=== PATIENT | male | born 1955 | race Caucasian/White ===

== ENCOUNTER → 2016-09-15 | Outpatient (CLI) | payer BC, OTHER ==
[~2016-09-15] MED LIST: ASPI325T39 PO; ATEN50TA8 PO; ATOR-26 PO; CLB/200 PO; ENAL10TA88 PO; EZET10TA63 PO; FENO160T PO; METF1TAB53 PO
[2016-09-15 14:14] VITALS: BP 125/81; PULSE 68; TEMP 36.8; O2SAT 98
--- NOTE | 2016-09-15 15:37 | Radiation Oncology Follow-Up ---
Radiation Oncology Follow-Up Date of Visit Sep 15, 2016. (Yudi Contreras PA-C) Reason For Visit Six-month follow-up (Yudi Contreras PA-C) Radiation Completion Date 04/14/16 (Yudi Contreras PA-C) Diagnosis (1) Prostate CA Onset Date: 11/06/2014 Location: both lobes the prostate Histology Subtype: adenocarcinoma Stage: lll Permanent Comment: STAGING: Prostate, adenocarcinoma, ever 4 + 5, rpPSA 0.07 , pT3b, group III TREATMENT: 1. Prostate Biopsy - 11/06/2014 2. Radical Prostatectomy - 01/10/2015 3. Elevated PSA (initial) - 09/04/2015 - 0.03 4. Status post completion of radiation therapy 04/14/2016 received 7020 cGy Last Edited By: Yudi Contreras on Apr 27, 2016 15:07 (Yudi Contreras PA-C) History of Present Illness Mr. Galarza is a 60-year-old gentleman who initially presented with an elevated PSA of 8.51 on 09/19/2014. The patient did have a transrectal ultrasound- guided biopsy by Dr. Winter on 11/06/2014. The pathology revealed prostate adenocarcinoma that was [place] 4+4. The patient subsequently to Dr. Gage Lui at [facility] and ultimately decided on a radical prostatectomy and bilateral pelvic lymph node dissection. The patient underwent radical prostatectomy and a bilateral pelvic lymph node dissection which revealed prostate adenocarcinoma that was [place] 4+5. There was noted to be extraprostatic extension and seminal vesicle invasion. Additionally , there was a focal peripheral margin at the base that was positive. The lymph nodes were negative bilaterally. The bladder neck margin was also negative. The patient was subsequently followed with a PSA which initially undetectable on 03/06/2015 as well as on 05/29/2015. The PSA was elevated to 0.03 on 2015. The PSA was repeated on 11/28/2015 and was 0.07. The patient did have a CT abdomen and pelvis completed on 11/26/2015 which revealed no evidence of bony metastatic disease or pelvic lymphadenopathy. Dr. Lui recommended consideration for salvage radiation therapy. He was given hormone suppression. He completed salvage radiation therapy 2016. He received 7020 cGy. (Yudi Contreras PA-C) Interim History He's been doing well over the past 6 months. His urinary status is excellent. He gave an AUA score of 1. He completed and expanded prostate cancer index composite for clinical practice and gave a score of 0 of 12 and urinary incontinence symptoms. He gave a score of 0 of 12 and urinary irritation symptoms. He gave a score of 0 12 bowel symptoms. He gave a score of 8 of 12 and sexual symptoms to note he considers is not a problem. He gave a score of 4 of 12 and hormonal vitality symptoms. His total was 12 of 60. He continues on hormone suppression. His last injection was June 2016. He states that Dr. Lui has told him that that was the final injection. He has had follow-up PSAs. Most recent was to light 2016. The PSA was less than 0.01. (Yudi Contreras PA-C) Allergies Coded Allergies: Chlorhexidine (Verified Allergy, Intermediate, RASH, 01/10/15) Home Medications Scheduled Aspirin (Aspirin Ec), 325 MG PO QAM Atenolol (Tenormin), 50 MG PO QAM Atorvastatin (Lipitor), 80 MG PO HS Enalapril (Vasotec), 10 MG PO QAM Ezetimibe (Zetia), 10 MG PO QAM Fenofibrate (Tricor), 160 MG PO QPM Metformin Hcl (Glucophage Ext Rel), 1,000 MG PO BID Scheduled PRN Celecoxib (CeleBREX), 1 CAP PO DAILY PRN for Pain Review of Systems Gastrointestinal: Symptoms: WNL Oral: Symptoms: No Problems Respiratory: Symptoms: WNL Urinary: Symptoms: WNL, Nocturia Comments: Nocturia x 1, See AUA & EPIC Skin: Symptoms: No Problems (Yudi Contreras PA-C) Physical Exam Vital Signs Date Time Temp Pulse Resp B/P (MAP) Pulse Ox O2 Delivery O2 Flow Rate FiO2 09/15/16 14:14 36.8 68 18 125/81 98 Fatigue: None General Appearance: no apparent distress Eyes: normal inspection, EOMI ENT: normal ENT inspection, hearing grossly normal Neck: no adenopathy, thyroid normal Respiratory/Chest: lungs clear, no respiratory distress, no accessory muscle use Cardiovascular: regular rate, rhythm, no gallop, no murmur Abdomen: non tender, soft, no organomegaly Extremities: no pedal edema Neurologic/Psychiatric: no motor/sensory deficits, alert, normal mood/affect Skin: warm/dry (Yudi Contreras PA-C) Additional Studies PSA as reviewed above. 09/07/2016. The PSA was less than 0.01. (Yudi Contreras PA-C) Assessment & Plan Plan: The patient was also seen today with Dr. Rico. He'll continue regular follow-up with Dr. Lui. He'll be having PSAs every 6 months. He stated that he'll likely be seeing Dr. Lui in November. We reviewed follow-up in approximately May 2017. He may call if he has any questions or concerns in the interim. (Yudi Contreras PA-C) I agree with note created by Yudi Contreras PA-C. I reviewed the patient's chart and information with her. I have examined and evaluated the patient. I reviewed relevant clinical information and answered the patient's and/or family' s questions. (Veeral. Rico MD) Total Time In Follow-Up I spent 15 minutes speaking to the patient performing examination. I spent 15 minutes reviewing information in completing this note. (Yudi Contreras PA-C) I spent 15 minutes examining and counseling the patient. (Veeral. Rico MD) Copy To Dwain Flores M.D.; Gage Lui MD, Urology
== END | disposition home or self-care (01) ==
LOC: C.ONC 14:04
PROVIDERS: ATTEND Physician Assistant Medical
DX: Z08 Encounter for follow-up examination after completed treatment for malignant neoplasm (principal); Z92.3 Personal history of irradiation; Z85.46 Personal history of malignant neoplasm of prostate

== ENCOUNTER 2018-06-22 10:54 | Inpatient (IN) ==
[2018-06-22] MEDS ORDERED: MoRPHine SULFATE 4 MG/ML 1 ML CARP\\VIAL IV PRN (13:22)
[2018-06-22] MEDS ORDERED: ACETAMINOPHEN 325 MG TAB PO PRN (13:22)
[2018-06-22] MEDS ORDERED: ONDANSETRON INJ 2 MG/ML 2 ML VIAL IV PRN (13:22)
[2018-06-22] MEDS ORDERED: MoRPHine SULFATE 2 MG/ML CARP IV PRN (13:22)
[2018-06-22] MEDS ORDERED: POLYETHYLENE (MIRALAX) 17 GM PACK PO PRN (13:22)
[2018-06-22] MEDS ORDERED: METOPROLOL TARTRATE 1 MG/ML VIAL IV PRN (13:22)
--- OUTSIDE RECORDS SUMMARY | 2018-06-22 13:22 | External Medical Summary | Continuity of Care Document ---
:1955 Author Name Jerald Amaya, Provider Address Unavailable Unavailable , Care Team Providers Name Role Phone Hu Amaya, Gage Suárez Unavailable [email or web address] [email or web address] Amaya|Bairon MEI Unavailable Unavailable Unavailable Unavailable Unavailable Problems Urinary frequency (788.41) (R35.0) Rising PSA level (790.93) (R97.20) Prostate cancer (185) (C61) Impotence (607.84) (N52.9) Hypercholesterolemia (272.0) (E78.00) Diabetes mellitus (250.00) (E11.9) Arthritis (716.90) (M19.90) Testicular swelling (608.86) (N50.89) Nocturia (788.43) (R35.1) Allergies and Adverse Reactions Chlorhexidine CONC (Allergy) Medications Atorvastatin Calcium 80 MG Oral Tablet; TAKE 1 TABLET DAILY. Refills: 0 metFORMIN HCl - 1000 MG Oral Tablet; TAKE 1 TABLET TWICE HEIDI LY WITH MEALS. Refills: 0 Zetia 10 MG Oral Tablet; TAKE 1 TABLET DAILY. Refills: 0 Aspirin 325 MG Oral Tablet; TAKE 1 TABLET DAILY. Refills: 0 Atenolol 50 MG Oral Tablet; TAKE 1 TABLET DAILY. Refills: 0 Enalapril Maleate 10 MG Oral Tablet; TAKE 1 TABLET DAILY. Refills: 0 Fenofibrate 160 MG Oral Tablet; TAKE 1 TABLET DAILY. Refills: 0 Sildenafil Citrate 20 MG Oral Tablet; 1- 5 tablets as needed for sexual activity. Monique Lui I. Start: 07-Dec-2016 Quantity: 100 Refills: 11 Celecoxib 200 MG Oral Capsule; TAKE 1 CAPSULE DAILY WI TH A MEAL. JASON Abdalla Start: 14-Oct-2015 Quantity: 30 Refills: 0 Procedures BUN/Creatinine Ratio w BUN+Creat Date: 14-Jun-2018 Total PSA Date: 14-Jun-2018 History of Hernia Repair Status: Complet ed History of Knee Surgery Status: Complete d History of Arthroscopy Knee Right Status : Completed History of Umbilical Hernia Repair Statu s: Completed History of Colonoscopy (Fiberoptic) Stat us: Completed History of Dental Surgery Status: Comple chelsea History of Oral Surgery Tooth Extraction Status: Completed Immunizations Immunizations not documented Family History Mother Family history of diabetes mellitus (V18.0) (Z83.3) Status: Active Family history of Colon cancer (153.9) (C18.9) Status: Activ e Brother Family history of diabetes mellitus (V18.0) (Z83.3) Status: Active Social History - Smoking Status Former smoker Plan of Treatment Planned Encounters Appointment; Gage Lui M.D. Start: 13-Dec-2018 14:00 R equest Planned Observations Planned Goals not documented Results In-House UA (Urology) (Pending) Laboratory: In House 14-Jun-2018 14:34 VOID, CC, CATH CC Turbid, Clear, Hazy Clear Gluc 0 Prot Trace Nitrate 0 Leuk 0 Blood 0 pH 6.5 Encounters Appointment; Gage Lui M.D. 14-Jun-2018 14:30 Encounter Diagnosis: Problem not documented Appointment; Gage Lui M.D. 14-Dec-2017 14:30 Encounter Diagnosis: Problem not documented Appointment; Gage Lui M.D. 07-Dec-2016 11:45 Encounter Diagnosis: Problem not documented Appointment; Urology, Nursing [facility] 07-Jul-2016 11:00 Encounter Diagnosis: Problem not documented Appointment; Gage Lui M.D. 13-Dec-2018 14:00 Encounter Diagnosis: Problem not documented"
[2018-06-22] MEDS ORDERED: GLUCOSE 40% GEL 15 GM TUBE PO PRN (13:28)
[2018-06-22] MEDS ORDERED: GLUCOSE 10 TABS/TUBE PO PRN (13:28)
[2018-06-22] MEDS ORDERED: CARBOHYDRATES FOR HYPOGLYCEMIA PO PRN (13:28)
[2018-06-22] MEDS ORDERED: DEXTROSE 50% 50 ML SYRINGE IV PRN (13:28)
[2018-06-22] MEDS ORDERED: GLUCAGON FOR INJ 1 MG VIAL SQ PRN (13:28)
[2018-06-22] MEDS ORDERED: PIPERACILL/TAZOBAC CONSULT ACTIVE PRN (13:50)
--- NOTE | 2018-06-22 13:58 | History & Physical Report ---
Date of Service June 22, 2018 Assessment & Plan (1) Pancreatitis: Patient's pancreatitis is significant by laboratory values to we will employ additional imaging of the liver ultrasound and MRCP to evaluate for retained stones. Given the fact that he is got kidney stones this may be the case also the fact that he is got significant irritability lethargy and but not a significant serum bilirubin this may be a passed stone. With concern for sepsis from a GI source given his high fever and tachypnea he will be continued on vancomycin and Zosyn therapy at this time (2) Hypertension: Patient typically takes atenolol for blood pressure control he will be n.p.o. for his pancreatitis will use metoprolol as needed currently there is some concern for sepsis so will not use a standing order but discontinued PRN. Nifedipine also will be help with this is more for renal protective effects for his diabetes (3) Diabetes: Patient typically is on oral control medications for his diabetes he is n.p.o. with sliding scale without carbohydrate coverage. Will use normal saline for hydration at this point time (4) Dyslipidemia: Patient typically takes atorvastatin Zetia and fenofibrate these will be held as he is currently n.p.o. (5) DVT prophylaxis: Heparin DVT prevention History of Present Illness Primary Care Provider: Loreto Jeong 62-year-old diabetic male transferred from [facility] with a history of 2 to 3 days of epigastric and lower chest pain which is worsened today he says he was concerned initially about it being his heart he says he previously had kidney stones but no pain ever like this. At the [facility] he is found to have a temperature of 101 he was tachypneic with respiratory rate of 24 he had an evaluation which included elevation of his LFTs lipase and amylase. CT scan did not show any significant biliary gallbladder ductal abnormalities. The physician at [facility] felt he had sepsis he was volume resuscitated with 2 L of lactated Ringer's given vancomycin and Zosyn and transferred to our facility for the possibility of needing gastroenterological expertise with regards to sepsis associated with pancreatitis I saw the patient in the room he said he is feeling much better he still having some epigastric and bilateral upper quadrant pain in his abdomen he has mild nausea I did review his medications which are atenolol 50 daily aspirin 81 mg daily Lipitor 80 a day fenofibrate 160-day Zetia 10 a day vitamin B12 2500 mg a day metformin 1000 twice daily nifedipine 60-day (this was recently changed from enalapril due to renal dysfunction) Celebrex 200 every day as needed and Januvia 100 a day Allergies Allergy/AdvReac Type Severity Reaction Status Date / Time chlorhexidine Allergy Intermediate RASH Verified 01/10/15 09:42 Home Medications Home Medications Medication Instructions Recorded Confirmed Type ASPIRIN (ASPIRIN EC) 325 mg PO QAM #0 12/25/14 History ATORVASTATIN (LIPITOR) 80 mg PO HS #0 tab 12/25/14 History Atenolol (Tenormin) 50 mg PO QAM #0 tab 12/25/14 History Enalapril (Vasotec) 10 mg PO QAM #0 tab 12/25/14 History Ezetimibe (Zetia) 10 mg PO QAM #0 tab 12/25/14 History Fenofibrate (Tricor) 160 mg PO QPM #0 tab 12/25/14 History METFORMIN HCL (GLUCOPHAGE EXT REL) 1,000 mg PO BID #0 tab 12/25/14 History CELECOXIB (CeleBREX) 1 cap PO DAILY PRN 30 Days #30 cap 12/26/15 History CYANOCOBALAMIN (VITAMIN B-12) 1 tab SUBLINGUAL DAILY #0 06/29/17 History Past Med/Surg History Medical History Diabetes Dyslipidemia Hypertension Pancreatitis Family History Unknown Kidney stone Social History Preferred Language: Tunisian Communication Ability: Effective Beliefs That Will Affect Care: None Current Living Situation: Spouse Other Information That Helps Us Care for You: No Feels Safe at Home: Yes Safety Concerns: Feels Safe At This Time Smoking Status: Never smoker Hx Alcohol Use: No Hx Substance Use: No Review of Systems Review of Systems: ROS: well nourished well developed. No double vision blurry vision No problems with speech or swallowing No palpitations, chest pain or pressure No Wheezing or breathing issues central and upper quadrant abdominal pain with mild nausea No burning urine urine frequency or changes in color No focal joint pain or muscle pain No skin rashes or oral lesions No unusual bruising or bleeding No focused back pain or numbness or loss of strength No changes in memory or confusion Physical Exam Physical Exam: The patient appeared well nourished and normally developed. Vital signs as documented. Head exam is unremarkable. normocephalic, atraumatic Neck is without jugular venous distension, thyromegaly, or lymphademopathy Lungs are clear to auscultation and percussion. Cardiac exam reveals Rhythm is regular. First and second heart sounds normal. Abdominal exam reveals active bowel sounds tenderness in epigastric and bilateral upper quadrants no rebound no guarding Extremities are mildly edematous and both pedal pulses are present Neurologic exam is A&Ox3, no focal deficits, strength is equal bilateral Psychologically seems neither anxious or depressed Skin is warm Dry without bruises or lesions Results & Data Vital Signs (Past 12 Hours) Vital Signs Temp Pulse Resp BP Pulse Ox 06/22/18 13:24 37 C 84 24 112/[address] scan from [facility] was reviewed there is no significant intra- abdominal pathology seen specifically no significant changes with the gallbladder or common bile duct
[2018-06-22] MEDS: SODIUM CHLORIDE 0.9% 1000ML 1,000 ML IV SCH (14:02)
[2018-06-22] MEDS ORDERED: Nursing to Pharmacy Communication ONE (14:08)
[2018-06-22] MEDS ORDERED: VANCOMYCIN CONSULT ACTIVE PRN (14:21)
[2018-06-22] MEDS ORDERED: VANCOMYCIN HCL 2,500 MG in SODIUM CHLORIDE 0.9% 500 ML IV ONE (14:30)
[2018-06-22] MEDS ORDERED: PIPERACILLIN/TAZOBACTAM 4.5 GM in DEXTROSE 5% 100 ML IV ONE (14:30)
[2018-06-22 14:34] LABS: INR 1.1 (0.9-1.1); Prothrombin Time 11.5 Seconds (9.0-12.0)
[2018-06-22 15:48] LABS: Creatinine Clr Calc Pharmacy 106.9 ml/min; Est GFR (African American) 94.7; Est GFR (Non-African American) 81.7
[2018-06-22] MEDS ORDERED: INSULIN ASPART 100 UNITS/ML 3 ML PEN SC SCH (16:30)
--- NOTE | 2018-06-22 16:31 | Ultrasound Report ---
US liver CLINICAL HISTORY: eval cbd and GB pain. Nausea. COMPARISON STUDY: No previous studies for comparison. FINDINGS: Small amount of gallbladder sludge. No shadowing gallstones. Gallbladder wall top normal at 3 mm. No pericholecystic fluid. Common bile duct is 5 mm. Liver demonstrates a component of fatty infiltration. Right kidney measures 13.7 cm maximum dimension. No evidence for hydronephrosis. Several nonobstructi ng right renal calcifications. IMPRESSION: 1. Small amount of gallbladder sludge. 2. Normal caliber bile ducts. 3. Fatty replacement of the liver. 4. Several nonobstructing right renal calcifications. The above report was generated using voice recognition software. It may contain grammatical, syntax or spelling errors. Electronically signed by: Parth Marlow M.D. 06/22/2018 4:30 PM
[2018-06-22] MEDS: PIPERACILLIN/TAZOBACTAM 4.5 GM in DEXTROSE 5% 100 ML IV SCH (18:45)
[2018-06-22] MEDS: INSULIN ASPART 100 UNITS/ML 3 ML PEN SC SCH (19:00)
--- NOTE | 2018-06-22 21:18 | XRay Report ---
XR orbits for MRI HISTORY: 62 years-old Male HX OF METAL IN EYES screening study for MRI. Possible foreign body of the orbits COMPARISON: None available TECHNIQUE: 3 views of the orbits FINDINGS: No opaque foreign body of the orbits identified. No acute facial bone fracture identified. The parana loren sinuses appear generally clear. IMPRESSION: No opaque foreign body. The above report was generated using voice recognition software. It may contain grammatical, syntax o r spelling errors. Electronically signed by: Lorenzo Cleary M.D. 06/22/2018 9:16 PM
--- NOTE | 2018-06-22 22:29 | Magnetic Resonance Report ---
MR MRCP HISTORY: 62 years-old Male acute pancreatitis, possible cholangitis acute pancreatitis with nausea a nd fever COMPARISON: CT abdomen and pelvis 11/26/2015 TECHNIQUE: MRCP without the use of IV contrast was utilized according to institutional protocol. FINDINGS: Study is mildly motion degraded. Imaged lower thorax appears unremarkable. Liver, spleen and adrenal glands are unremarkable. There is moderate gallbladder wall thickening measuring up to approximately 8 mm at the gallbladder fundus. No definite cholelithiasis. Cystic foci about the gallbladder wall al so noted. No pericholecystic fluid identified. Liver is unremarkable. There is an 11 mm circumscribed T2 hyperintense lesion of the posterior right hepatic lobe suggestive of a probable cyst. Similar-ap pearing 8 mm lesion noted about the anterior right hepatic lobe. There is no intrahepatic biliary arline jsoe dilation. Common bile duct is normal, 4 mm. No evidence of choledocholithiasis. Pancreatic duct a ppears normal in caliber. No evidence of pancreatic divisum. No significant inflammation surrounding the pancreas. There is mild generalized pancreatic atrophy. There are a few cystic foci of the pancre atic tail measuring up to 5 mm which may reflect sidebranch IPMN's. No drainable fluid collection. Mild nonspecific bilateral perinephric stranding. 1.7 cm T2 hyperintense lesion of the inferior pole left kidney is suggestive of a probable cyst. Aorta and IVC are unremarkable. No adenopathy. The imag ed bowel appears unremarkable. Soft tissues and bony structures are also within normal limits. IMPRESSION: 1. No evidence of acute pancreatitis, pancreatic ductal dilation or pancreatic fluid collection. 2. Gallbladder wall thickening with suggestion of probable adenomyomatosis. 3. No biliary ductal dilation or choledocholithiasis. The above report was generated using voice recognition software. It may contain grammatical, syntax o r spelling errors. Electronically signed by: Lorenzo Cleary M.D. 06/22/2018 10:28 PM
[2018-06-22] MEDS: HEPARIN SOD 5,000 UNIT/0.5 ML VIAL SQ SCH (22:33)
[2018-06-22] MEDS: FAMOTIDINE 20 MG in SYRINGE 3 ML IV SCH (22:33)
[2018-06-23] MEDS: PIPERACILLIN/TAZOBACTAM 4.5 GM in DEXTROSE 5% 100 ML IV SCH ×3 (01:29→18:09)
[2018-06-23] MEDS: SODIUM CHLORIDE 0.9% 1000ML 1,000 ML IV SCH ×3 (01:30→15:13)
[2018-06-23] MEDS: VANCOMYCIN HCL 1,500 MG in SODIUM CHLORIDE 0.9% 500 ML IV SCH ×2 (04:11→12:10)
[2018-06-23] MEDS: INSULIN ASPART 100 UNITS/ML 3 ML PEN SC SCH ×5 (05:36→21:29)
[2018-06-23 06:07] LABS: Hematocrit (blood only) 33.3 % (42-52); Hemoglobin 11.1 g/dL (14.0-18.0); Mean Corpuscular Hgb Conc 33.3 g/dL (32-36); Mean Corpuscular Volume 86.5 fL (80-100); Mean Platelet Volume 9.5 fL (7.4-10.4); Platelet Count 230 K/uL (130-400); RDW Coefficient of Variation 14.4 % (11.5-14.5); RDW Standard Deviation 45.6 fL (36.4-46.3); Red Blood Count 3.85 M/uL (4.7-6.1); White Blood Count 7.64 K/uL (4.8-10.8)
[2018-06-23 06:37] LABS: Albumin Level 2.6 gm/dl (3.4-5.0); BUN Creatinine Ratio 10.7 (10-20); Bilirubin Direct 0.4 mg/dl (0-0.2); Creatinine Clr Calc Pharmacy 126.5 ml/min; Est GFR (African American) 108.5; Est GFR (Non-African American) 93.6; Potassium 3.4 mmol/L (3.5-5.1)
[2018-06-23 06:39] LABS: Bilirubin,Total 0.9 mg/dl (0.2-1); Total Protein 6.1 gm/dl (6.4-8.2)
[2018-06-23] MEDS: HEPARIN SOD 5,000 UNIT/0.5 ML VIAL SQ SCH ×2 (07:53→21:29)
[2018-06-23] MEDS: FAMOTIDINE 20 MG in SYRINGE 3 ML IV SCH ×2 (07:56→21:30)
[2018-06-23 08:11] LABS: Estimated Average Glucose 160 mg/dl; Hemoglobin A1C 7.2 % (4.5-5.6)
--- NOTE | 2018-06-23 10:16 | Gastrointestinal Consultation ---
Date of Consultation June 23, 2018 Assessment & Plan (1) Elevated LFTs: 62 year old male who presented to [facility] with upper abd pain, nausea w/ fevers at home. It is unclear to me whether or not imaging was done at OSH but labs at that time were notable for significantly elevated lipase/amylase w/ mildly elevated LFTs. There was concern for gallstone panc which prompted transfer. At [facility] he was started on Zosyn and Vancomycin. He has remained afebrile since admission without evidence of leukocytosis or elevated lactic acid. Lipase has since normalized but but transaminases remain elevated w/ normal TB and ALKP. MR and ABD US imaging w/ sludge but without any evidence of acute cholecystitis, pancreatic inflammatory changes, biliary dilation, gallstones or retained biliary stones. DDX discussed: passing stone/sludge - Continue IV ABX for now - Trend LFTs - LR 200 mL/hr - Analgesia PRN - Antiemetics PRN - No clear indication for ERCP - Pending LFTs and clinical status tomorrow will discuss if EUS/ERCP is indicated Thank you for allowing us to participate in the care of this patient. Please call with any acute changes, questions or concerns. Please see addendum below with additional recommendation from my supervising physician. Present on Admission?: Yes (2) Elevated lipase: Present on Admission?: Yes Supervising Physician Co-Signing Physician Notes I have performed a history and physical examination of this patient and reviewed the electronic medical record. Specifically, on physical examination there is mild epigastric tenderness. I have discussed the case with JASON Hurtado. The above note reflects my findings, conclusions, and recommendations. Artie Nails MD History of Present Illness Reason for Consultation: gallstone panc Requesting Physician: Arturo Attending Physician: Shravan Lui MD History of Present Illness 62 year old male w/ history of HTN, dyslipidemia, prostate CA s/p radiaiton transferred from [facility] for gallstone pancreatits - GI asked to evaluate. He notes progressive upper abdominal pain that started about three days ago. Pain is sharp, stabbing constant. Radiates to both upper quadrants and into his back. Assocaited w/ nausea and dry heaves but denies any vomiting. Notes he had a reported temperature at home which prompted ED evaluation. In [facility] was noted to have significantly elevated lipase w/ elevated LFTS and temp 101. No bowel complaints. Denies black/bloody stools. No fever, chills, CP, SOB. Does note some unintentional weight loss although is unable to quantify how much. ETOH none New meds: nifedepine TB: 1.6 -->0.9 AST: 271 --> 416 ALT: 96 --> 259 ALKP 74--> 70 Lipase 15,000 --> 323 ABD US: Small amount of gallbladder sludge.Normal caliber bile ducts.Fatty replacement of the liver. Several nonobstructing right renal calcifications. MRCP: There is moderate gallbladder wall thickening measuring up to approximately 8 mm at the gallbladder fundus. No definite cholelithiasis. Cystic foci about the gallbladder wall also noted. No pericholecystic fluid identified. Liver is unremarkable. There is an 11 mm circumscribed T2 hyperintense lesion of the posterior right hepatic lobe suggestive of a probable cyst. Similar- appearing 8 mm lesion noted about the anterior right hepatic lobe. There is no intrahepatic biliary ductal dilation. Common bile duct is normal, 4 mm. No evidence of choledocholithiasis. Pancreatic duct appears normal in caliber. No evidence of pancreatic divisum. No significant inflammation surrounding the pancreas. There is mild generalized pancreatic atrophy. There are a few cystic foci of the pancreatic tail measuring up to 5 mm which may reflect sidebranch IPMN's. No drainable fluid collection. Allergies Allergy/AdvReac Type Severity Reaction Status Date / Time chlorhexidine Allergy Intermediate RASH Verified 01/10/15 09:42 Home Medications Home Medications Medication Instructions Recorded Confirmed Type ASPIRIN (ASPIRIN EC) 325 mg PO QAM #0 12/25/14 06/22/18 History ATORVASTATIN (LIPITOR) 80 mg PO HS #0 tab 12/25/14 06/22/18 History Atenolol (Tenormin) 50 mg PO QAM #0 tab 12/25/14 06/22/18 History Enalapril (Vasotec) 10 mg PO QAM #0 tab 12/25/14 History Ezetimibe (Zetia) 10 mg PO QAM #0 tab 12/25/14 06/22/18 History Fenofibrate (Tricor) 160 mg PO QPM #0 tab 12/25/14 06/22/18 History METFORMIN HCL (GLUCOPHAGE EXT REL) 1,000 mg PO BID #0 tab 12/25/14 06/22/18 History CELECOXIB (CeleBREX) 1 cap PO DAILY PRN 30 Days #30 cap 12/26/15 History CYANOCOBALAMIN (VITAMIN B-12) 1 tab SUBLINGUAL DAILY #0 06/29/17 06/22/18 History Patient History Medical History Diabetes Dyslipidemia Hypertension Pancreatitis Family History Unknown Kidney stone Social History Preferred Language: Nepalese Communication Ability: Effective Beliefs That Will Affect Care: None Current Living Situation: Spouse Other Information That Helps Us Care for You: No Feels Safe at Home: Yes Safety Concerns: Feels Safe At This Time Smoking Status: Never smoker Hx Alcohol Use: No Hx Substance Use: No Review of Systems Constitutional: + weight loss; no fever, no chills and no weakness Respiratory: no cough, no dyspnea, no pain on inspiration and no wheezing Cardiovascular: no chest pain, no radiating jaw, neck or arm pain, no dyspnea on exertion and no palpitations Gastrointestinal: + abdominal pain and + nausea; no belching, no bloating, no early satiety, no heartburn, no vomiting, no coffee ground emesis, no blood in stools and no melena Physical Exam Constitutional: well developed and well nourished; no acute distress Respiratory: normal respiratory effort, lungs clear to auscultation Cardiovascular: RRR, no murmur, no edema Gastrointestinal (Abdomen): normal bowel sounds, soft, nontender, no hepatosplenomegaly Skin: no rashes, warm and dry Results & Data Vital Signs (Past 12 Hours) Vital Signs Temp Pulse Pulse Resp BP Pulse Ox 06/23/18 07:39 71 06/23/18 07:05 36.7 C 68 18 124/77 94 06/23/18 03:25 36.6 C 72 18 129/77 95 06/22/18 23:15 36.5 C 69 16 125/77 95 06/22/18 22:45 68 Laboratory Results 06/23/18 06/23/18 06/23/18 Range/Units 05:33 05:30 05:30 WBC (4.8-10.8) K/uL RBC (4.7-6.1) M/uL Hgb (14.0-18.0) g/dL Hct (42-52) % MCV (80-100) fL MCH (25-34) pg MCHC (32-36) g/dL RDW Std Deviation (36.4-46.3) fL RDW Coeff of Angely (11.5-14.5) % Plt Count (130-400) K/uL MPV (7.4-10.4) fL PT (9.0-12.0) Seconds INR (0.9-1.1) Sodium 138 (136-145) mmol/L Potassium 3.4 L (3.5-5.1) mmol/L Chloride 110 H (98-107) mmol/L Carbon Dioxide 21 (21-32) mmol/L Anion Gap 7.0 (3-11) BUN 9 (7-18) mg/dl Creatinine 0.83 (0.6-1.4) mg/dl Est Cr Clr Drug Dosing 126.5 ml/min Est GFR ( Amer) 108.5 Est GFR (Non-Af Amer) 93.6 BUN/Creatinine Ratio 10.7 (10-20) Glucose 174 H (70-99) mg/dl POC Glucose 180 H (70-99) Estimat Average Glucose 160 mg/dl Hemoglobin A1c 7.2 H (4.5-5.6) % Calcium 8.0 L (8.5-10.1) mg/dl Total Bilirubin 0.9 (0.2-1) mg/dl Direct Bilirubin 0.4 H (0-0.2) mg/dl AST 416 H (15-37) U/L ALT 259 H (12-78) U/L Alkaline Phosphatase 70 (45-117) U/L Total Protein 6.1 L (6.4-8.2) gm/dl Albumin 2.6 L (3.4-5.0) gm/dl Lipase 323 (73-393) U/L Random Vancomycin mcg/ml 06/23/18 06/22/18 06/22/18 Range/Units 05:30 23:53 18:57 WBC 7.64 (4.8-10.8) K/uL RBC 3.85 L (4.7-6.1) M/uL Hgb 11.1 L (14.0-18.0) g/dL Hct 33.3 L (42-52) % MCV 86.5 (80-100) fL MCH 28.8 (25-34) pg MCHC 33.3 (32-36) g/dL RDW Std Deviation 45.6 (36.4-46.3) fL RDW Coeff of Angely 14.4 (11.5-14.5) % Plt Count 230 (130-400) K/uL MPV 9.5 (7.4-10.4) fL PT (9.0-12.0) Seconds INR (0.9-1.1) Sodium (136-145) mmol/L Potassium (3.5-5.1) mmol/L Chloride (98-107) mmol/L Carbon Dioxide (21-32) mmol/L Anion Gap (3-11) BUN (7-18) mg/dl Creatinine (0.6-1.4) mg/dl Est Cr Clr Drug Dosing ml/min Est GFR ( Amer) Est GFR (Non-Af Amer) BUN/Creatinine Ratio (10-20) Glucose (70-99) mg/dl POC Glucose 171 H 167 H (70-99) Estimat Average Glucose mg/dl Hemoglobin A1c (4.5-5.6) % Calcium (8.5-10.1) mg/dl Total Bilirubin (0.2-1) mg/dl Direct Bilirubin (0-0.2) mg/dl AST (15-37) U/L ALT (12-78) U/L Alkaline Phosphatase (45-117) U/L Total Protein (6.4-8.2) gm/dl Albumin (3.4-5.0) gm/dl Lipase (73-393) U/L Random Vancomycin mcg/ml 06/22/18 06/22/18 06/22/18 Range/Units 17:09 15:26 15:19 WBC (4.8-10.8) K/uL RBC (4.7-6.1) M/uL Hgb (14.0-18.0) g/dL Hct (42-52) % MCV (80-100) fL MCH (25-34) pg MCHC (32-36) g/dL RDW Std Deviation (36.4-46.3) fL RDW Coeff of Angely (11.5-14.5) % Plt Count (130-400) K/uL MPV (7.4-10.4) fL PT (9.0-12.0) Seconds INR (0.9-1.1) Sodium (136-145) mmol/L Potassium (3.5-5.1) mmol/L Chloride (98-107) mmol/L Carbon Dioxide (21-32) mmol/L Anion Gap (3-11) BUN (7-18) mg/dl Creatinine 0.98 (0.6-1.4) mg/dl Est Cr Clr Drug Dosing 106.9 ml/min Est GFR ( Amer) 94.7 Est GFR (Non-Af Amer) 81.7 BUN/Creatinine Ratio (10-20) Glucose (70-99) mg/dl POC Glucose 228 H (70-99) Estimat Average Glucose mg/dl Hemoglobin A1c (4.5-5.6) % Calcium (8.5-10.1) mg/dl Total Bilirubin (0.2-1) mg/dl Direct Bilirubin (0-0.2) mg/dl AST (15-37) U/L ALT (12-78) U/L Alkaline Phosphatase (45-117) U/L Total Protein (6.4-8.2) gm/dl Albumin (3.4-5.0) gm/dl Lipase (73-393) U/L Random Vancomycin 13.3 mcg/ml 06/22/18 06/22/18 Range/Units 14:18 14:04 WBC (4.8-10.8) K/uL RBC (4.7-6.1) M/uL Hgb (14.0-18.0) g/dL Hct (42-52) % MCV (80-100) fL MCH (25-34) pg MCHC (32-36) g/dL RDW Std Deviation (36.4-46.3) fL RDW Coeff of Angely (11.5-14.5) % Plt Count (130-400) K/uL MPV (7.4-10.4) fL PT 11.5 (9.0-12.0) Seconds INR 1.1 (0.9-1.1) Sodium (136-145) mmol/L Potassium (3.5-5.1) mmol/L Chloride (98-107) mmol/L Carbon Dioxide (21-32) mmol/L Anion Gap (3-11) BUN (7-18) mg/dl Creatinine (0.6-1.4) mg/dl Est Cr Clr Drug Dosing ml/min Est GFR ( Amer) Est GFR (Non-Af Amer) BUN/Creatinine Ratio (10-20) Glucose (70-99) mg/dl POC Glucose 268 H (70-99) Estimat Average Glucose mg/dl Hemoglobin A1c (4.5-5.6) % Calcium (8.5-10.1) mg/dl Total Bilirubin (0.2-1) mg/dl Direct Bilirubin (0-0.2) mg/dl AST (15-37) U/L ALT (12-78) U/L Alkaline Phosphatase (45-117) U/L Total Protein (6.4-8.2) gm/dl Albumin (3.4-5.0) gm/dl Lipase (73-393) U/L Random Vancomycin mcg/ml Diagnostic Findings 06/23/18 06/23/18 06/23/18 Range/Units 05:33 05:30 05:30 WBC (4.8-10.8) K/uL RBC (4.7-6.1) M/uL Hgb (14.0-18.0) g/dL Hct (42-52) % MCV (80-100) fL MCH (25-34) pg MCHC (32-36) g/dL RDW Std Deviation (36.4-46.3) fL RDW Coeff of Angely (11.5-14.5) % Plt Count (130-400) K/uL MPV (7.4-10.4) fL PT (9.0-12.0) Seconds INR (0.9-1.1) Sodium 138 (136-145) mmol/L Potassium 3.4 L (3.5-5.1) mmol/L Chloride 110 H (98-107) mmol/L Carbon Dioxide 21 (21-32) mmol/L Anion Gap 7.0 (3-11) BUN 9 (7-18) mg/dl Creatinine 0.83 (0.6-1.4) mg/dl Est Cr Clr Drug Dosing 126.5 ml/min Est GFR ( Amer) 108.5 Est GFR (Non-Af Amer) 93.6 BUN/Creatinine Ratio 10.7 (10-20) Glucose 174 H (70-99) mg/dl POC Glucose 180 H (70-99) Estimat Average Glucose 160 mg/dl Hemoglobin A1c 7.2 H (4.5-5.6) % Calcium 8.0 L (8.5-10.1) mg/dl Total Bilirubin 0.9 (0.2-1) mg/dl Direct Bilirubin 0.4 H (0-0.2) mg/dl AST 416 H (15-37) U/L ALT 259 H (12-78) U/L Alkaline Phosphatase 70 (45-117) U/L Total Protein 6.1 L (6.4-8.2) gm/dl Albumin 2.6 L (3.4-5.0) gm/dl Lipase 323 (73-393) U/L Random Vancomycin mcg/ml 06/23/18 06/22/18 06/22/18 Range/Units 05:30 23:53 18:57 WBC 7.64 (4.8-10.8) K/uL RBC 3.85 L (4.7-6.1) M/uL Hgb 11.1 L (14.0-18.0) g/dL Hct 33.3 L (42-52) % MCV 86.5 (80-100) fL MCH 28.8 (25-34) pg MCHC 33.3 (32-36) g/dL RDW Std Deviation 45.6 (36.4-46.3) fL RDW Coeff of Angely 14.4 (11.5-14.5) % Plt Count 230 (130-400) K/uL MPV 9.5 (7.4-10.4) fL PT (9.0-12.0) Seconds INR (0.9-1.1) Sodium (136-145) mmol/L Potassium (3.5-5.1) mmol/L Chloride (98-107) mmol/L Carbon Dioxide (21-32) mmol/L Anion Gap (3-11) BUN (7-18) mg/dl Creatinine (0.6-1.4) mg/dl Est Cr Clr Drug Dosing ml/min Est GFR ( Amer) Est GFR (Non-Af Amer) BUN/Creatinine Ratio (10-20) Glucose (70-99) mg/dl POC Glucose 171 H 167 H (70-99) Estimat Average Glucose mg/dl Hemoglobin A1c (4.5-5.6) % Calcium (8.5-10.1) mg/dl Total Bilirubin (0.2-1) mg/dl Direct Bilirubin (0-0.2) mg/dl AST (15-37) U/L ALT (12-78) U/L Alkaline Phosphatase (45-117) U/L Total Protein (6.4-8.2) gm/dl Albumin (3.4-5.0) gm/dl Lipase (73-393) U/L Random Vancomycin mcg/ml 06/22/18 06/22/18 06/22/18 Range/Units 17:09 15:26 15:19 WBC (4.8-10.8) K/uL RBC (4.7-6.1) M/uL Hgb (14.0-18.0) g/dL Hct (42-52) % MCV (80-100) fL MCH (25-34) pg MCHC (32-36) g/dL RDW Std Deviation (36.4-46.3) fL RDW Coeff of Angely (11.5-14.5) % Plt Count (130-400) K/uL MPV (7.4-10.4) fL PT (9.0-12.0) Seconds INR (0.9-1.1) Sodium (136-145) mmol/L Potassium (3.5-5.1) mmol/L Chloride (98-107) mmol/L Carbon Dioxide (21-32) mmol/L Anion Gap (3-11) BUN (7-18) mg/dl Creatinine 0.98 (0.6-1.4) mg/dl Est Cr Clr Drug Dosing 106.9 ml/min Est GFR ( Amer) 94.7 Est GFR (Non-Af Amer) 81.7 BUN/Creatinine Ratio (10-20) Glucose (70-99) mg/dl POC Glucose 228 H (70-99) Estimat Average Glucose mg/dl Hemoglobin A1c (4.5-5.6) % Calcium (8.5-10.1) mg/dl Total Bilirubin (0.2-1) mg/dl Direct Bilirubin (0-0.2) mg/dl AST (15-37) U/L ALT (12-78) U/L Alkaline Phosphatase (45-117) U/L Total Protein (6.4-8.2) gm/dl Albumin (3.4-5.0) gm/dl Lipase (73-393) U/L Random Vancomycin 13.3 mcg/ml 06/22/18 06/22/18 Range/Units 14:18 14:04 WBC (4.8-10.8) K/uL RBC (4.7-6.1) M/uL Hgb (14.0-18.0) g/dL Hct (42-52) % MCV (80-100) fL MCH (25-34) pg MCHC (32-36) g/dL RDW Std Deviation (36.4-46.3) fL RDW Coeff of Angely (11.5-14.5) % Plt Count (130-400) K/uL MPV (7.4-10.4) fL PT 11.5 (9.0-12.0) Seconds INR 1.1 (0.9-1.1) Sodium (136-145) mmol/L Potassium (3.5-5.1) mmol/L Chloride (98-107) mmol/L Carbon Dioxide (21-32) mmol/L Anion Gap (3-11) BUN (7-18) mg/dl Creatinine (0.6-1.4) mg/dl Est Cr Clr Drug Dosing ml/min Est GFR ( Amer) Est GFR (Non-Af Amer) BUN/Creatinine Ratio (10-20) Glucose (70-99) mg/dl POC Glucose 268 H (70-99) Estimat Average Glucose mg/dl Hemoglobin A1c (4.5-5.6) % Calcium (8.5-10.1) mg/dl Total Bilirubin (0.2-1) mg/dl Direct Bilirubin (0-0.2) mg/dl AST (15-37) U/L ALT (12-78) U/L Alkaline Phosphatase (45-117) U/L Total Protein (6.4-8.2) gm/dl Albumin (3.4-5.0) gm/dl Lipase (73-393) U/L Random Vancomycin mcg/ml
--- NOTE | 2018-06-23 10:33 | Pharmacy Report ---
Pharmacy Abx Initial Consult - Date of Service June 23, 2018 - Pharmacy Dosing Scope Date of Consult: 06-22 Consultation requested by: Dr. Morris Pharmacy is consulted to initiate vancomycin/zosyn dosing therapy, order appropriate labs and adjust drug dose/frequency. - Subjective The patient is a 62 year old M admitted on 06/22/18 13:19. - Objective Height: 6 ft Weight: 129 kg Vital Signs (Past 12hrs): Vital Signs Temp Pulse Pulse Resp BP Pulse Ox 06/23/18 07:39 71 06/23/18 07:05 36.7 C 68 18 124/77 94 06/23/18 03:25 36.6 C 72 18 129/77 95 06/22/18 23:15 36.5 C 69 16 125/77 95 06/22/18 22:45 68 Lab Results (24hrs): Laboratory Tests (24 Hours) 06/23/18 06/23/18 06/22/18 05:30 05:30 17:09 WBC 7.64 Creatinine 0.83 Est Cr Clr Drug Dosing 126.5 Random Vancomycin 13.3 06/22/18 15:26 WBC Creatinine 0.98 Est Cr Clr Drug Dosing 106.9 Random Vancomycin - Risk Factors for Resistance * Antimicrobial use within the last 90 days [vancomycin/zosyn CLINICAL SOCIAL WORK AIDE] - Assessment & Plan Assessment/Plan: Pharmacy consulted to start vancomycin and zosyn for possible sepsis associated with pancreatitis. Patient had been transferred from OSH where he had worsening epigastric/lower chest pain/temp. GI consulted to follow patient. Vancomycin: * Received vancomycin 2000 mg iv at OSH prior to transfer - pharmacy unaware of prior abx, had ordered another loading dose of vancomycin - notified of prior abx and infusion was stopped right away (20 mins after) * Random level ordered for yesterday evening came back at 13.3 mcg/ml and maintenance dosing of vancomycin ordered * Ordered vancomycin 1500 mg (~12 mg/kg) iv q 8 hrs - dosing started for this morning 5 AM * Estimated kinetics: t1/2~8 hrs, ke~0.091, CrCl - used max of 100 ml/min for dosing to provider more accurate dosing of kinetics * Will plan to obtain trough prior to the 1200 dose on 06/24 to ensure therapeutic Zosyn: * 4.5 gm iv q 8 hrs (appropriate for CrCl >20 ml/min : BMI>35 kg/m2) Pharmacy will continue to follow and will adjust dose/frequency as necessary. Thank you.
--- NOTE | 2018-06-23 14:42 | Hospitalist Progress Note ---
Date of Service June 23, 2018 Assessment & Plan (1) Pancreatitis: Lipase was 15,000 at [facility] on 06/22, down to 350 on 06/23. LFTs were 270/95 to 415/260 today. - Possibly due to passed gallbladder stone. - Seen by GI with recommendation to consult surgery. - Continue IV fluids, pain control, antibiotics (2) Hypertension: Usually on atenolol for HTN as outpatient. - Switched to metoprolol PRN on admission. - Monitor BP (3) Diabetes: A1c was 7.2% this admission. Normally on metformin. - Sliding scale insulin (4) Dyslipidemia: Patient typically takes atorvastatin, Zetia, and fenofibrate. - Hold statin for his hepatitis and being NPO. - Restart as able; may hold statin on discharge. (5) DVT prophylaxis: Heparin 5000 units Q12h Subjective Improved pain in the abdominal area. Less epigastric pain, but now more in a band across the chest. Review of Systems Review of Systems: All systems reviewed & are unremarkable except as noted in HPI & below Physical Exam Constitutional: well developed and well nourished; no acute distress Respiratory: normal respiratory effort, lungs clear to auscultation Cardiovascular: RRR, no murmur, no edema Gastrointestinal (Abdomen): normal bowel sounds, soft, nontender, no hepatos plenomegaly Skin: no rashes, warm and dry Neurologic: awake; not confused Psychiatric: Orientation: alert and oriented x 3 Results & Data Vital Signs (Past 12 Hours) Vital Signs Temp Pulse Pulse Resp BP Pulse Ox 06/23/18 12:07 37.4 C 78 17 146/82 H 94 06/23/18 07:39 71 06/23/18 07:05 36.7 C 68 18 124/77 94 06/23/18 03:25 36.6 C 72 18 129/77 95
[2018-06-23] MEDS ORDERED: LACTATED RINGER'S 1,000 ML IV SCH (14:45)
[2018-06-23] MEDS ORDERED: Nursing to Pharmacy Communication ONE (15:12)
--- NOTE | 2018-06-23 15:42 | Surgery Consultation ---
Date of Consultation June 23, 2018 Assessment & Plan (1) Biliary acute pancreatitis: Biliary sludge with GB 3mm, normal WBC. Lipase, bili and alk phos normalized but AST, ALT were up slightly today. MRCP was negative, GI is considering EUS if LFTs continue to rise. Given his pancreatitis would recommend lap to and will tentatively plan that for tomorrow with cholangiogram. Will check AM labs and discuss further tomorrow. History of Present Illness Attending Physician: Shravan Lui MD History of Present Illness 62 y/o male with epigastric pain Wednesday night increased on Wednesday and had fever, nausea, and dark urine he describes as brown. Wednesday he had more pain across his upper abdomen and back, was concerned about his heart and went to [facility] ER. He was found to have elevated lipase (15,000), he was transferred here for further GI eval. Back pain and nausea have resolved, he is passing some flatus but feels a little bloated. No previous abdominal pain or biliary colic. Had robotic prostatectomy by Dr. Lui and remote umbilical hernia repair with mesh. Allergies Allergy/AdvReac Type Severity Reaction Status Date / Time chlorhexidine Allergy Intermediate RASH Verified 01/10/15 09:42 Home Medications Home Medications Medication Instructions Recorded Confirmed Type ASPIRIN (ASPIRIN EC) 325 mg PO QAM #0 12/25/14 06/22/18 History ATORVASTATIN (LIPITOR) 80 mg PO HS #0 tab 12/25/14 06/22/18 History Atenolol (Tenormin) 50 mg PO QAM #0 tab 12/25/14 06/22/18 History Enalapril (Vasotec) 10 mg PO QAM #0 tab 12/25/14 History Ezetimibe (Zetia) 10 mg PO QAM #0 tab 12/25/14 06/22/18 History Fenofibrate (Tricor) 160 mg PO QPM #0 tab 12/25/14 06/22/18 History METFORMIN HCL (GLUCOPHAGE EXT REL) 1,000 mg PO BID #0 tab 12/25/14 06/22/18 History CELECOXIB (CeleBREX) 1 cap PO DAILY PRN 30 Days #30 cap 12/26/15 History CYANOCOBALAMIN (VITAMIN B-12) 1 tab SUBLINGUAL DAILY #0 06/29/17 06/22/18 History Patient History Medical History Anemia Diabetes Dyslipidemia H/O difficult intubation Hypertension Obesity Pancreatitis Surgical History History of colonoscopy History of knee surgery History of robot-assisted laparoscopic radical prostatectomy 01/10/15 Grade 3 view with Mac 3 blade History of umbilical hernia repair Family History Unknown Kidney stone Social History Preferred Language: Luxembourgish Communication Ability: Effective Beliefs That Will Affect Care: None Current Living Situation: Spouse Other Information That Helps Us Care for You: No Feels Safe at Home: Yes Safety Concerns: Feels Safe At This Time Smoking Status: Never smoker Hx Alcohol Use: No Hx Substance Use: No Review of Systems Constitutional: + fever and + chills; no anorexia and no weight loss Respiratory: + cough; no dyspnea Cardiovascular: no chest pain and no chest pain with activity Gastrointestinal: + belching, + bloating and + nausea; no vomiting Physical Exam Constitutional: WD/WN, vitals as above Respiratory: normal respiratory effort, lungs clear to auscultation Cardiovascular: RRR, no murmur, no edema Gastrointestinal (Abdomen): Inspection/Auscultation: + abdomen distended (slightly) Percussion/Palpation: abdomen nontender and no guarding Skin: no rashes, warm and dry Results & Data Vital Signs (Past 12 Hours) Vital Signs Temp Pulse Pulse Resp BP Pulse Ox 06/23/18 15:21 37.3 C 77 18 156/89 H 95 06/23/18 12:07 37.4 C 78 17 146/82 H 94 06/23/18 07:39 71 06/23/18 07:05 36.7 C 68 18 124/77 94
--- NOTE | 2018-06-23 16:44 | Anesthesiology Consultation ---
Date of Service June 23, 2018 Assessment & Plan (1) Encounter for pre-operative examination: Chart Review Chart Review: Acceptable Risk for Surgery and Patient NOT seen in Pre Admission Testing Consults Requested none Medicine is following the patient. History Surgery Operation Date: 06/24/18 11:25 Proposed Procedures p Laparoscopic Cholecystectomy with Cholangiogram - Jossue Hayward MD Height/Weight Height: 6 ft Weight: 129 kg Allergies Allergy/AdvReac Type Severity Reaction Status Date / Time chlorhexidine Allergy Intermediate RASH Verified 01/10/15 09:42 Medications Home Medications Medication Instructions Recorded Confirmed Last Taken ASPIRIN (ASPIRIN EC) 325 mg PO QAM #0 12/25/14 06/22/18 06/22/18 05:00 ATORVASTATIN (LIPITOR) 80 mg PO HS #0 tab 12/25/14 06/22/18 06/21/18 21:00 Atenolol (Tenormin) 50 mg PO QAM #0 tab 12/25/14 06/22/18 06/22/18 05:00 Enalapril (Vasotec) 10 mg PO QAM #0 tab 12/25/14 Unknown Ezetimibe (Zetia) 10 mg PO QAM #0 tab 12/25/14 06/22/18 06/22/18 05:00 Fenofibrate (Tricor) 160 mg PO QPM #0 tab 12/25/14 06/22/18 06/21/18 17:30 METFORMIN HCL (GLUCOPHAGE EXT REL) 1,000 mg PO BID #0 tab 12/25/14 06/22/18 06/22/18 05:00 CELECOXIB (CeleBREX) 1 cap PO DAILY PRN 30 Days #30 cap 12/26/15 Unknown CYANOCOBALAMIN (VITAMIN B-12) 1 tab SUBLINGUAL DAILY #0 06/29/17 06/22/18 06/22/18 05:00 Active Medications Generic Name Dose Route Start Last Admin Trade Name Freq PRN Reason Stop Dose Admin Acetaminophen 650 mg 06/22/18 13:22 06/22/18 22:36 Tylenol PO 07/22/18 13:21 650 mg Q4H PRN Administration Pain or Fever Heparin Sodium (Porcine) 5,000 units 06/22/18 21:00 06/23/18 07:53 Heparin Sodium (Porcine) SQ 07/22/18 20:59 5,000 units Q12 ALTON Administration Famotidine 20 mg/ Syringe 5 mls @ 2.5 mls/min 06/22/18 21:00 06/23/18 07:56 IV 07/22/18 20:59 2.5 mls/min BID ALTON Administration Piperacillin Sod/Tazobactam 120 mls @ 30 mls/hr 06/22/18 18:00 06/23/18 14:16 Sod 4.5 gm/ Dextrose IV 07/02/18 17:59 Infused Q8H ALTON Infusion Protocol Past Medical History Medical History Anemia Diabetes Dyslipidemia H/O difficult intubation Hypertension Obesity Pancreatitis Past Family History Family History Unknown Kidney stone Past Surgical History Surgical History History of colonoscopy History of knee surgery History of robot-assisted laparoscopic radical prostatectomy 01/10/15 Grade 3 view with Mac 3 blade History of umbilical hernia repair Past Anesthesia History Patient was noted to be a Grade 3 view with Mac 3 blade on intubation for prostate surgery Social History Smoking Status: Never smoker Hx Alcohol Use: No Hx Substance Use: No Physical Exam Vital Signs Last Vital Signs Temp 37.3 C 06/23/18 15:21 Pulse 77 06/23/18 15:21 Resp 18 06/23/18 15:21 BP 156/89 H 06/23/18 15:21 Pulse Ox 95 06/23/18 15:21 Testing Electrocardiogram Date: 06/22/18 SR with PACs rate 76 Laboratory Results 06/23/18 05:30 06/23/18 05:30 PT 11.5 Seconds (9.0-12.0) 06/22/18 14:04 INR 1.1 (0.9-1.1) 06/22/18 14:04 Hemoglobin A1c 7.2 % (4.5-5.6) H 06/23/18 05:30 06/23/18 06/23/18 11:56 05:33 POC Glucose 157 H 180 H
[2018-06-23] MEDS: NSS + 20MEQ KCL 20 MEQ/1,000 ML BAG IV SCH (18:06)
[2018-06-24] MEDS ORDERED: Nursing to Pharmacy Communication ONE ×2 (00:26→10:44)
[2018-06-24] MEDS: INSULIN ASPART 100 UNITS/ML 3 ML PEN SC SCH ×5 (00:49→20:58)
[2018-06-24] MEDS: PIPERACILLIN/TAZOBACTAM 4.5 GM in DEXTROSE 5% 100 ML IV SCH ×3 (02:10→18:33)
[2018-06-24] MEDS: NSS + 20MEQ KCL 20 MEQ/1,000 ML BAG IV SCH ×3 (02:10→16:29)
[2018-06-24 05:55] LABS: Hematocrit (blood only) 32.5 % (42-52); Hemoglobin 11.1 g/dL (14.0-18.0); Mean Corpuscular Hgb Conc 34.2 g/dL (32-36); Mean Corpuscular Volume 85.5 fL (80-100); Mean Platelet Volume 9.2 fL (7.4-10.4); Platelet Count 243 K/uL (130-400); RDW Coefficient of Variation 14.3 % (11.5-14.5); RDW Standard Deviation 44.9 fL (36.4-46.3); White Blood Count 5.83 K/uL (4.8-10.8)
[2018-06-24 06:42] LABS: Albumin Level 2.6 gm/dl (3.4-5.0); BUN Creatinine Ratio 11.2 (10-20); Bilirubin Direct 0.3 mg/dl (0-0.2); Calcium 8.4 mg/dl (8.5-10.1); Creatinine Clr Calc Pharmacy 154.4 ml/min; Est GFR (African American) 117.8; Est GFR (Non-African American) 101.6; Potassium 3.5 mmol/L (3.5-5.1)
[2018-06-24 06:45] LABS: Bilirubin,Total 0.8 mg/dl (0.2-1); Total Protein 6.1 gm/dl (6.4-8.2)
--- NOTE | 2018-06-24 07:03 | History & Physical Bridge Note ---
Date of Service June 24, 2018 History & Physical Bridge Note I have examined the patient, reviewed the History & Physical and in the interval since the performance of the History & Physical I have noted the following changes of clinical significance: no changes noted had a good night ok to proceed with surgery all questions answered pravin dominguez possible open Supervising Physician Co-Signing Physician Notes I have performed a history and physical examination of this patient and reviewed the electronic medical record. Specifically, on physical examination there is mild epigastric tenderness. I have discussed the case with JASON Hurtado. The above note reflects my findings, conclusions, and recommendations. Artie Nails MD
[2018-06-24] MEDS ORDERED: CONRAY 60% 50 ML VIAL ONE (07:42)
[2018-06-24] MEDS ORDERED: LIDOCAINE/EPINEPHRINE 1% 20 ML VIAL ONE (07:42)
[2018-06-24] MEDS ORDERED: MIDAZOLAM HCL 1 MG/ML 2ML VIAL ONE (07:52)
[2018-06-24] MEDS ORDERED: fentaNYL citrate 100 MCG/2 ML VIAL ONE (07:53)
[2018-06-24] MEDS ORDERED: ONDANSETRON INJ 2 MG/ML 2 ML VIAL ONE (08:48)
[2018-06-24] MEDS ORDERED: PROPOFOL IV EMULSION 10 MG/ML 20 ML VIAL IV ONE (08:48)
[2018-06-24] MEDS ORDERED: DEXAMETHASONE SOD INJ 4 MG/ML VIAL ONE (08:48)
[2018-06-24] MEDS ORDERED: ROCURONIUM BROMIDE 10 MG/ML 5 ML VIAL ONE ×2 (08:48→09:09)
[2018-06-24] MEDS ORDERED: NEOSTIGMINE METHYLSULFATE 5 MG/5 ML SYR ONE (08:49)
[2018-06-24] MEDS ORDERED: GLYCOPYRROLATE 0.2 MG/ML VIAL ONE (08:49)
[2018-06-24] MEDS ORDERED: LIDOCAINE HCL 2% 2 ML VIAL/AMP(20MG/ML) INFIL ONE (08:49)
[2018-06-24] MEDS ORDERED: ONDANSETRON INJ 2 MG/ML 2 ML VIAL IV PRN (08:50)
[2018-06-24] MEDS ORDERED: DEXAMETHASONE SOD INJ 4 MG/ML VIAL IV PRN (08:50)
[2018-06-24] MEDS ORDERED: ePHEDrine sulfate 50 MG/ML AMP IV PRN (08:50)
[2018-06-24] MEDS ORDERED: KETOROLAC 30 MG/ML VIAL IV PRN (08:50)
[2018-06-24] MEDS ORDERED: fentaNYL citrate 100 MCG/2 ML VIAL IV PRN (08:50)
[2018-06-24] MEDS ORDERED: HYDROmorphone INJ 2 MG/ML SYR/VIAL IV PRN (08:50)
[2018-06-24] MEDS ORDERED: ATROPINE SULFATE 0.1 MG/ML 10ML SYR IV PRN (08:50)
--- NOTE | 2018-06-24 09:24 | Fluoroscopy Report ---
[place] cholangiogram OR HISTORY: 62 years-old Male IOC intraoperative cholangiogram COMPARISON: MRCP 06/22/2018 TECHNIQUE: 4 spot fluoroscopic images of the abdominal right upper quadrant were obtained utilizing 4 .2 seconds fluoroscopy time FINDINGS: Cannulation of the cystic duct with contrast opacification. No biliary ductal dilation, stricturing o r focal filling defects are identified. Contrast flows freely from the cystic duct into the common bi le duct and subsequently into the duodenum. Partially opacified pancreatic duct appears unremarkable. No contrast extravasation identified. IMPRESSION: Fluoroscopic assistance as above. Please see operative report for further details. The above report was generated using voice recognition software. It may contain grammatical, syntax o r spelling errors. Electronically signed by: Lorenzo Cleary M.D. 06/24/2018 9:22 AM
--- NOTE | 2018-06-24 09:27 | Post Operative Brief Note ---
Immediate Post Op Note v1 Date of Surgery June 24, 2018 Pre & Post Diagnosis Operation Date: 06/24/18 11:25 Pre-Op Diagnosis: PANCREATITIS, SEPSIS Post-Op Diagnosis: PANCREATITIS, SEPSIS Procedure Operation Date: 06/24/18 11:25 Actual Procedures p Laparoscopic Cholecystectomy with Cholangiogram(Not Applicable) - Jossue Hayward MD Surgeon Jossue Hayward MD Electric Lineman [employer] Estimated Blood Loss 10 Findings Consistent with Post-Op Diagnosis
[2018-06-24] MEDS ORDERED: LABETALOL HCL IV 5 MG/ML 20ML IV ONE (09:28)
--- NOTE | 2018-06-24 09:43 | Operative Report ---
Post Operative Report Pre & Post Diagnosis Operation Date: 06/24/18 11:25 Pre-Op Diagnosis: PANCREATITIS, SEPSIS Post-Op Diagnosis: PANCREATITIS, SEPSIS Procedure Operation Date: 06/24/18 11:25 Actual Procedures p Laparoscopic Cholecystectomy with Cholangiogram(Not Applicable) - Jossue Hayward MD The patient was brought into the operating room theater supine position general endotracheal anesthesia the abdomen was prepped Betadine solution properly draped patient was on antibiotics patient was identified a timeout was had small incision was made supraumbilically above the previous robotic entry site Veress needle introduced in the abdomen followed by CO2 followed by 5 mm trocar point of entry inspected no injury identified direct visualization 5 mm epigastric two 5 mm ports were placed with preemptive local analgesic gallbladder was identified. Thick ashley lateral trocar was used as access for graspers elevated significant amount of fatty tissue was encountered on the gallbladder wall were taken down by sharp and blunt dissection the fatty tissue was quite extensive and it was taken down towards the kamilah hepatis we identified some chronic inflammation at the takeoff of the cystic duct were able to get around the cystic duct there is obstruction was not sure if it was a small artery adjacent to it but it very hard to operate the 2 clip 5 mm was placed at its takeoff of the cystic duct from the gallbladder small opening was made in #4 urethral catheter transverse to the abdominal wall on 814 Angiocath was positioned in the cystic duct serial x-rays were taken showed free flow into the duodenum we could see the pancreatic duct which the long corkscrew cystic duct and no filling defects at this point we dissected further down from we have placed the original catheter in the cystic duct to the point that we were on top of the common bile duct or he got around the cystic duct again securely clipped it twice and divided at dissected out under the fatty tissue in the triangle RUTHY the lymph node was not identifiable we did see structure deep at the takeoff of the fundus of the gallbladder which consistent with the artery were doubly clipped and divided gallbladder removed in the antegrade fashion freeing up and leave and is much the posterior peritoneum intact once of the liver we placed an Endopouch and took around intact of the epigastric port subhepatic suprahepatic area was checked for hemostasis appear satisfactory at this point we placed the catheter out camera on the right lateral port site to visualize our initial entry into the umbilical area adhesions were appreciated but we were above the adhesions through the previous coronaries. She had had in the umbilical area and robotic entry site individual trochars removed under direct visualization last the umbilical trocar 4-0 Monocryl used to close the subcu Steri-Strips applied procedure was tolerated well by the patient 10 cc blood loss Maikel FIELDS was present throughout the procedure helped her exposure camera work and wound closure Surgeon Jossue Hayward MD Nitriles Lab Technician gerard fields Estimated Blood Loss 10 Findings Consistent with Post-Op Diagnosis Specimens gallbladder and contents Description of Procedure merda I attest to the content of the Intraoperative Record and any orders documented therein. Any exceptions are noted below. Supervising Physician Co-Signing Physician Notes I have performed a history and physical examination of this patient and reviewed the electronic medical record. Specifically, on physical examination there is mild epigastric tenderness. I have discussed the case with JSAON Hurtado. The above note reflects my findings, conclusions, and recommendations. Artie Nails MD
[2018-06-24] MEDS: FAMOTIDINE 20 MG in SYRINGE 3 ML IV SCH (10:20)
[2018-06-24] MEDS ORDERED: MoRPHine SULFATE 4 MG/ML 1 ML CARP\\VIAL IV PRN (10:35)
[2018-06-24] MEDS ORDERED: OXYCODONE/ACETAMINOPHEN 5mg/325mg TAB PO PRN (10:35)
--- NOTE | 2018-06-24 10:48 | Anesthesiology Progress Note ---
Date of Service June 24, 2018 Anesthesia Post Procedure Vital Signs Vital Signs: Temp Pulse Pulse Pulse Resp BP Pulse Ox 06/24/18 10:25 36.3 C L 76 16 124/66 92 06/24/18 10:15 73 19 132/62 92 06/24/18 10:05 70 21 123/70 94 06/24/18 09:55 70 22 129/65 93 06/24/18 09:49 36.0 C L 82 24 128/73 95 06/24/18 07:30 68 06/24/18 03:20 36.8 C 69 18 105/67 96 06/24/18 02:17 76 06/24/18 00:21 36.9 C 71 22 143/82 H 94 06/23/18 19:43 36.6 C 78 18 145/78 H 95 06/23/18 16:30 75 06/23/18 15:21 37.3 C 77 18 156/89 H 95 06/23/18 12:07 37.4 C 78 17 146/82 H 94 Pain Intensity Bilateral Back: Pain Intensity: 5 Bilateral Upper Abdomen: Pain Intensity: 3 Bilateral Lower Abdomen: Pain Intensity: 2 Transfer of Care Handoff Completed per policy Notes Mental Status: alert / awake / arousable and participated in evaluation Patient Amnestic to Procedure: Yes Nausea / Vomiting: adequately controlled Pain: adequately controlled Airway Patency, RR, SpO2: stable & adequate BP & HR: stable & adequate Hydration State: stable & adequate Anesthetic Complications: no major complications apparent
--- NOTE | 2018-06-24 11:18 | Gastroenterology Progress Note ---
Date of Service June 24, 2018 Assessment & Plan (1) Elevated LFTs: Mr. Galarza is a 62 yr old male who had abdominal pain, elevated LFTs and underwent lap choley this morning with OR cholangiogram with normal bile duct and no evidence of choledocholithiasis. 1. Would follow LFTs to resolution. 2. No indication for ERCP. 3. GI will sign off. Present on Admission?: Yes (2) Biliary acute pancreatitis: Supervising Physician Co-Signing Physician Notes I saw and evaluated the patient. He underwent cholecystectomy today with intraoperative cholangiogram. It appears that the intraoperative cholangiogram was negative for retained stones. Please call us with any additional questions or concerns, GI to sign off Subjective Ms. Galarza is a 62 yr old male who was transferred here from [facility] for elevated LFTs (AST 416->94, ALT 285->65) and pancreatitis on 06/22, US with GB sludge, MRCP clear, underwent Lap Choley this morning and I saw him in his room on PCU on return from the OR. He is awake, alert oriented, hemodynamically stable and does not appear jaundiced. Review of Systems Review of Systems: ROS: Gen: Denies weakness, fevers, weight loss Eyes: No eye redness, or pain, no recent vision changes Resp: No SOB, no cough Cardio: No palpitations/irregular beats, no chest pain GI: + abdominal pain, no nausea/vomiting : Denies pain on urination Skin: No jaundice, itching or new rashes Physical Exam Constitutional: WD/WN, vitals as above + obese Eyes: PERRL, conjunctivae normal, anicteric sclerae ENMT: external ear and nose normal, oropharynx normal Neck: trachea midline, no thyromegaly Respiratory: normal respiratory effort, lungs clear to auscultation Cardiovascular: RRR, no murmur, no edema Gastrointestinal (Abdomen): Mildly distended, BS present, surgical dressings in place, dry Skin: no jaundice Neurologic: PERRL, EOMI, accommodation nl, no face palsy, no dysarthria Psychiatric: A+Ox3, euthymic affect Lymphatic: no cervical or axillary lymphadenopathy Results & Data Vital Signs (Past 12 Hours) Vital Signs Temp Pulse Pulse Pulse Resp BP Pulse Ox 06/24/18 10:25 36.3 C L 76 16 124/66 92 06/24/18 10:15 73 19 132/62 92 06/24/18 10:05 70 21 123/70 94 06/24/18 09:55 70 22 129/65 93 06/24/18 09:49 36.0 C L 82 24 128/73 95 06/24/18 07:30 68 06/24/18 03:20 36.8 C 69 18 105/67 96 06/24/18 02:17 76 06/24/18 00:21 36.9 C 71 22 143/82 H 94
[2018-06-24] MEDS ORDERED: VANCOMYCIN TROUGH ONE (11:30)
--- NOTE | 2018-06-24 16:20 | Hospitalist Progress Note ---
Date of Service June 24, 2018 Assessment & Plan (1) Pancreatitis: Lipase was 15,000 at [facility] on 06/22, down to 350 on 06/23. LFTs were 270/95 to 415/260 on 06/23. - Likely due to passed gallbladder stone. - Lap to on 06/24. - All labs improving on 06/24 - Continue IV fluids, pain control, antibiotics - Likely discharge off all abx (2) Hypertension: Usually on atenolol for HTN as outpatient. - Switched to metoprolol PRN on admission. - Monitor BP (3) Diabetes: A1c was 7.2% this admission. Normally on metformin. - Sliding scale insulin (4) Dyslipidemia: Patient typically takes atorvastatin, Zetia, and fenofibrate. - Hold statin for his hepatitis - Restart as able; may hold statin on discharge. (5) DVT prophylaxis: Heparin 5000 units Q12h Subjective Feeling fairly well. Stomach feels "tight" after lap to. Reports no fevers/chills, chest pain, shortness of breath, nausea, or vomiting. Physical Exam Constitutional: WD/WN, vitals as above Eyes: EOM intact bilaterally; no conjunctival abnormality ENMT: external ear and nose normal, oropharynx normal Neck: trachea midline, no thyromegaly normal visual inspection Respiratory: normal respiratory effort, lungs clear to auscultation no respiratory distress Cardiovascular: RRR, no murmur, no edema Gastrointestinal (Abdomen): Inspection/Auscultation: abdomen normal to inspection; abdomen not distended Musculoskeletal: no cyanosis or clubbing, extremities motor strength 5/5 Skin: no rashes, warm and dry Neurologic: moves all extremities and awake Psychiatric: Orientation: alert, oriented to person and cooperative Results & Data Vital Signs (Past 12 Hours) Vital Signs Temp Pulse Pulse Resp BP Pulse Ox 06/24/18 16:07 37.1 C 84 18 128/73 95 06/24/18 15:13 86 06/24/18 13:00 36.7 C 84 18 156/78 H 94 06/24/18 12:01 82 18 152/84 H 93 06/24/18 11:15 82 18 145/79 H 91 06/24/18 10:45 36.9 C 77 18 135/78 91 06/24/18 10:25 36.3 C L 76 16 124/66 92 06/24/18 10:15 73 19 132/62 92 06/24/18 10:05 70 21 123/70 94 06/24/18 09:55 70 22 129/65 93 06/24/18 09:49 36.0 C L 82 24 128/73 95 06/24/18 07:30 68
[2018-06-24] MEDS ORDERED: DiphenhydrAMINE HCL 50 MG/ML VIAL IV STA (19:38)
[2018-06-24] MEDS: HEPARIN SOD 5,000 UNIT/0.5 ML VIAL SQ SCH (20:58)
[2018-06-25] MEDS: PIPERACILLIN/TAZOBACTAM 4.5 GM in DEXTROSE 5% 100 ML IV SCH ×2 (02:23→09:57)
[2018-06-25 05:59] LABS: Hemoglobin 11.1 g/dL (14.0-18.0); Mean Corpuscular Hgb Conc 33.6 g/dL (32-36); Mean Corpuscular Volume 86.2 fL (80-100); Mean Platelet Volume 9.3 fL (7.4-10.4); Platelet Count 280 K/uL (130-400); RDW Coefficient of Variation 14.3 % (11.5-14.5); RDW Standard Deviation 45.2 fL (36.4-46.3); Red Blood Count 3.83 M/uL (4.7-6.1); White Blood Count 6.65 K/uL (4.8-10.8)
[2018-06-25 06:36] LABS: Albumin Level 2.5 gm/dl (3.4-5.0); BUN Creatinine Ratio 11.4 (10-20); Bilirubin Direct 0.2 mg/dl (0-0.2); Calcium 8.4 mg/dl (8.5-10.1); Creatinine Clr Calc Pharmacy 123.8 ml/min; Est GFR (Non-African American) 93.2; Potassium 3.3 mmol/L (3.5-5.1)
[2018-06-25 06:38] LABS: Bilirubin,Total 0.6 mg/dl (0.2-1); Total Protein 6.4 gm/dl (6.4-8.2)
[2018-06-25] MEDS: INSULIN ASPART 100 UNITS/ML 3 ML PEN SC SCH ×2 (08:44→11:39)
[2018-06-25] MEDS: HEPARIN SOD 5,000 UNIT/0.5 ML VIAL SQ SCH (09:05)
[2018-06-25 11:47] VITALS: BP 157/91; TEMP 98.4; O2SAT 95
[2018-06-25 12:27] VITALS: PULSE 74
--- NOTE | 2018-06-25 12:38 | Surgery Progress Note ---
Date of Service June 25, 2018 Assessment & Plan (1) S/P laparoscopic cholecystectomy: for biliary pancreatitis. Doing well with improvement in labs. OK to discharge home from surgical standpoint. Subjective Feels well. No complaints. Eating, no nausea, pain controlled. Physical Exam Respiratory: normal respiratory effort, lungs clear to auscultation Cardiovascular: RRR, no murmur, no edema Gastrointestinal (Abdomen): normal bowel sounds, soft, nontender, no hepatosplenomegaly incisions clean Neurologic: moves all extremities; no focal motor deficits Psychiatric: A+Ox3, euthymic affect Results & Data Vital Signs (Past 12 Hours) Vital Signs Temp Pulse Pulse Pulse Resp BP Pulse Ox 06/25/18 12:26 36.9 C 75 74 18 157/91 H 95 06/25/18 11:46 36.9 C 75 18 157/91 H 95 06/25/18 08:00 72 06/25/18 07:14 37.2 C 74 19 146/80 H 93 06/25/18 03:50 37.0 C 67 17 155/82 H 94
--- NOTE | 2018-06-25 19:48 | Discharge Summary ---
Date of Service June 25, 2018 Admission HPI Per Admitting Provider 62-year-old diabetic male transferred from [facility] with a history of 2 to 3 days of epigastric and lower chest pain which is worsened today he says he was concerned initially about it being his heart he says he previously had kidney stones but no pain ever like this. At the [facility] he is found to have a temperature of 101 he was tachypneic with respiratory rate of 24 he had an evaluation which included elevation of his LFTs lipase and amylase. CT scan did not show any significant biliary gallbladder ductal abnormalities. The physician at [facility] felt he had sepsis he was volume resuscitated with 2 L of lactated Ringer's given vancomycin and Zosyn and transferred to our facility for the possibility of needing gastroenterological expertise with regards to sepsis associated with pancreatitis I saw the patient in the room he said he is feeling much better he still having some epigastric and bilateral upper quadrant pain in his abdomen he has mild nausea I did review his medications which are atenolol 50 daily aspirin 81 mg daily Lipitor 80 a day fenofibrate 160-day Zetia 10 a day vitamin B12 2500 mg a day metformin 1000 twice daily nifedipine 60-day (this was recently changed from enalapril due to renal dysfunction) Celebrex 200 every day as needed and Januvia 100 a day Principal Diagnosis Likely choledocolithiasis Discharge Exam Constitutional WD/WN, vitals as above well developed and well nourished; no acute distress Eyes EOM intact bilaterally; no conjunctival abnormality ENMT external ear and nose normal, oropharynx normal Neck trachea midline, no thyromegaly normal visual inspection Respiratory normal respiratory effort, lungs clear to auscultation no respiratory distress Cardiovascular RRR, no murmur, no edema Gastrointestinal (Abdomen) normal bowel sounds, soft, nontender, no hepatosplenomegaly Inspection/Auscultation: abdomen normal to inspection; abdomen not distended Musculoskeletal no cyanosis or clubbing, extremities motor strength 5/5 Skin no rashes, warm and dry Neurologic moves all extremities and awake; not confused Psychiatric Orientation: alert, oriented x 3, oriented to person and cooperative Discharge Data Allergies Allergy/AdvReac Type Severity Reaction Status Date / Time chlorhexidine Allergy Intermediate RASH Verified 01/10/15 09:42 Consultations 06/22/18 13:26 Consult Case Management - Discharge Planning Routine 06/23/18 08:53 Consult Gastroenterology Routine 06/23/18 14:07 Consult General Surgery Routine Procedures Performed Operation Date: 06/24/18 11:25 Actual Procedures p Laparoscopic Cholecystectomy with Cholangiogram(Not Applicable) - Jossue Hayward MD Ordered Studies 06/22/18 13:28 MR MRCP Routine US liver Routine 06/24/18 07:45 [place] cholangiogram OR Routine Hospital Course (1) Pancreatitis: Lipase was 15,000 at [facility] on 06/22, down to 350 on 06/23. LFTs were 270/95 to 415/260 on 06/23. - Likely due to passed gallbladder stone. - Lap to on 06/[address] Hayward. - All labs resolving by 06/25 - Discharged with surgery follow up. (2) Hypertension: Usually on atenolol for HTN as outpatient. - Switched to metoprolol PRN on admission. - Return to normal on discharge. (3) Diabetes: A1c was 7.2% this admission. Normally on metformin. - Sliding scale insulin (4) Dyslipidemia: Patient typically takes atorvastatin, Zetia, and fenofibrate. - Held statin for his hepatitis - Restarted on discharge (5) DVT prophylaxis: Heparin 5000 units Q12h Total Time Total Time Spent Total Time Spent (In Minutes): 35 Total Time Includes: Examination of the Patient, Discharge Planning and Communication With Other Providers Discharge Plan Discharge Items Patient Disposition: Home - Self-Care Reason For Visit: PANCREATITIS, SEPSIS Discharge Diagnosis: Laparoscopic cholecystectomy Discharge Goals: Decrease discomfort Activity: Per 'Additional Instructions' section Lifting: No more than 10 pounds Bathing: No limitations Driving/Machine Use: Resume 3 days after discharge Non-emergency contact: Surgeon Call non-emergency contact if: you have any medication questions, your pain is not controlled, you have a fever, your temperature is above 101.5 and your wound has increased redness Follow-up/Referrals: Jossue Hayward MD [Surgeon] - (Call to make an appt for 1 week) Loreto Jeong PA-C [Primary Care Provider] - 06/28/18 7:00 am (follow up primary care provider appointment) Diet: Low Fat Addtl Provider Instructions: Mr. Galarza, you were admitted to the hospital for stomach pain from your gallbladder. We think you passed a gallbladder stone. During the time it was stuck, it caused irritation of your pancreas and liver. These issues were all improving even when you arrived to the hospital. Dr. Hayward removed your gallbladder, and the irritation of your pancreas is completely resolved. The blood tests we check for liver irritation are all improving. Your pain is almost resolved. Please follow up with your PCP to make sure your stomach is returning to normal and with Dr. Hayward in a few weeks to be sure the incisions look good. Leave steri-strips on until follow-up, you can shower over them. Prescriptions: New oxycodone-acetaminophen [Percocet] 5-325 mg tablet 1 - 2 tab PO Q4H PRN (Reason: pain) Qty: 15 RF: 0 Continued ASPIRIN (ASPIRIN EC) 325 MG tablet 325 mg PO QAM Qty: 0 RF: 0 ATORVASTATIN (LIPITOR) 80 MG tablet 80 mg PO HS Qty: 0 RF: 0 Atenolol (Tenormin) 50 MG tablet 50 mg PO QAM Qty: 0 RF: 0 Enalapril (Vasotec) 10 MG tablet 10 mg PO QAM Qty: 0 RF: 0 Ezetimibe (Zetia) 10 MG tablet 10 mg PO QAM Qty: 0 RF: 0 Fenofibrate (Tricor) 160 MG tablet 160 mg PO QPM Qty: 0 RF: 0 METFORMIN HCL (GLUCOPHAGE EXT REL) 1,000 MG tablet 1,000 mg PO BID Qty: 0 RF: 0 CELECOXIB (CeleBREX) 200 MG capsule 1 cap PO DAILY PRN (Reason: Pain) 30 Days Qty: 30 RF: 2 CYANOCOBALAMIN (VITAMIN B-12) 2,500 MCG SUB 1 tab Sublingual DAILY Qty: 0 RF: 0 Stand-Alone Forms: [facility] Discharge Orders: Discharge Order (Routine); Ordered 06/25/18 Ordered By: Shravan Lui Admission Data Admit Date/Time: 06/22/18 13:19 Attending Provider: Shravan Lui Admit Provider: Edilberto Morris Primary Care Provider: Loreto Jeong Other Providers: Jossue Hayward ; Artie Nails Service: Telemetry Other Interventions: Discharge Summary Assessment (RN) Last Done: 06/25/18 12:26 DC Date/Time DO NOT enter until pt leaves facility: 06/25/18 13:30
== END 2018-06-25 13:30 | disposition home or self-care (01) | DRG 853 ==
LOC: 2S 13:19